=== PATIENT | female | born 1960 | race Caucasian/White ===

== ENCOUNTER → 2017-05-12 | Outpatient (CLI) | payer BC, MEDICARE | END | disposition home or self-care (01) | LOC: CFH 14:07 | PROVIDERS: ATTEND Obstetrics & Gynecology | DX: Z12.31 Encounter for screening mammogram for malignant neoplasm of breast (principal) | CPT/HCPCS: G0202 ==

== ENCOUNTER → 2018-05-30 | Outpatient (CLI) | payer BC, MEDICARE | END | disposition home or self-care (01) | LOC: CFH 14:50 | PROVIDERS: ATTEND Obstetrics & Gynecology | DX: Z12.31 Encounter for screening mammogram for malignant neoplasm of breast (principal); Z80.3 Family history of malignant neoplasm of breast | CPT/HCPCS: 77067 ==

== ENCOUNTER → 2018-12-29 | Outpatient (CLI) | payer BC, MEDICARE | END | disposition home or self-care (01) | LOC: CFH 14:30 | PROVIDERS: ATTEND Family Medicine | DX: M47.812 Spondylosis without myelopathy or radiculopathy, cervical region (principal); M48.02 Spinal stenosis, cervical region; M25.78 Osteophyte, vertebrae | CPT/HCPCS: 72141 ==

== ENCOUNTER 2019-07-20 05:18 | Inpatient (IN) | payer BC, MEDICARE ==
[~2019-07-20] VITALS: Ht 152.4 cm; Wt 70.2 kg
[2019-07-20] MEDS ORDERED: LACTATED RINGERS 1,000 ML IV SCH (06:05)
[2019-07-20] MEDS ORDERED: FEXO180T72 PO (06:07)
[2019-07-20] MEDS ORDERED: THROMBIN 5,000 UNIT VIAL TP ONE (06:22)
[2019-07-20] MEDS ORDERED: EPINEPHRINE 1 MG/ML, 1ML ONE (06:22)
[2019-07-20] MEDS ORDERED: BUPIVACAINE/PF 0.5% ONE (06:22)
[2019-07-20] MEDS ORDERED: BACITRACIN 50,000 UNIT ONE (06:22)
[2019-07-20] MEDS ORDERED: FENTANYL PF 250 MCG/5ML ONE (06:29)
[2019-07-20] MEDS ORDERED: PROPOFOL 100 ML ONE (06:29)
[2019-07-20] MEDS ORDERED: MIDAZOLAM 1 MG/ML, 2ML ONE (06:29)
[2019-07-20 06:30] VITALS: BP 166/95
[2019-07-20] MEDS ORDERED: ACETAMINOPHEN 500 MG TABLET PO ONE (07:00)
[2019-07-20] MEDS ORDERED: FAMOTIDINE 20 MG TABLET PO ONE (07:00)
[2019-07-20] MEDS ORDERED: OxyconTIN ER 10 MG TAB.ER PO ONE (07:00)
[2019-07-20] MEDS ORDERED: GABAPENTIN 300 MG CAPSULE PO ONE (07:00)
[2019-07-20] MEDS ORDERED: IPRATROPIUM BROMIDE (07:09)
[2019-07-20] MEDS ORDERED: ALPR0.25 PO (07:09)
[2019-07-20] MEDS ORDERED: ALBU90AE INH (07:09)
[2019-07-20] MEDS ORDERED: LOSA50TA14 PO (07:09)
[2019-07-20] MEDS ORDERED: NYSTATIN (07:09)
[2019-07-20] MEDS ORDERED: HYDR25TA6 PO (07:09)
[2019-07-20] MEDS ORDERED: PRAV10TA2 PO (07:09)
[2019-07-20] MEDS ORDERED: HYOS0.1260 PO (07:09)
[2019-07-20] MEDS ORDERED: DEXAMETHASONE 4 MG/ML, 1ML ONE ×3 (07:14)
[2019-07-20] MEDS ORDERED: CEFAZOLIN 1,000 MG ONE ×2 (07:15)
[2019-07-20] MEDS ORDERED: DIAZEPAM 5 MG/ML, 2ML IVPush PRN (08:30)
[2019-07-20] MEDS ORDERED: HYDROmorphone 2 MG/ML, 1ML IVPush PRN ×2 (08:30→11:00)
[2019-07-20] MEDS ORDERED: OXYcodone 5 MG/5 ML ORAL.SOL UDC PO PRN (08:30)
[2019-07-20] MEDS ORDERED: MEPERIDINE/PF 25MG/ML,1ML IVPush PRN (08:30)
[2019-07-20] MEDS ORDERED: ONDANSETRON 2MG/ML, 2ML IV PRN (08:30)
[2019-07-20] MEDS ORDERED: LABETALOL 5MG/ML, 20ML IV PRN ×2 (08:30→11:00)
[2019-07-20] MEDS ORDERED: PROMETHAZINE 25 MG/ML, 1ML IV PRN (08:30)
[2019-07-20] MEDS ORDERED: hydrALAzine 20 MG/ML, 1ML IV PRN (08:30)
[2019-07-20] MEDS ORDERED: SUCCINYLCHOLINE 20 MG/ML, 10ML ONE (08:37)
[2019-07-20] MEDS ORDERED: PROPOFOL 10 MG/ML, 20ML ONE (08:37)
[2019-07-20] MEDS ORDERED: ONDANSETRON 2MG/ML, 2ML ONE (08:41)
[2019-07-20] MEDS ORDERED: FENTANYL PF 100 MCG/2ML ONE ×2 (09:19→09:42)
[2019-07-20] MEDS: FENTANYL PF 100 MCG/2ML IV PRN ×3 (09:20→09:47)
[2019-07-20] MEDS ORDERED: ALBUTEROL/IPRATROPIUM 2.5MG/0.5MG, 3 ML NPPB PRN (09:30)
[2019-07-20] MEDS ORDERED: METHOCARBAMOL 1,000 MG in DEXTROSE 5% 100 ML IV ONE ×2 (09:30→11:00)
[2019-07-20] MEDS ORDERED: ALBUTEROL SULFATE 2.5 MG/3 ML ONE (09:39)
[2019-07-20] MEDS ORDERED: RACEPINEPHRINE INH 2.25%, 0.5ML NPPB PRN (10:30)
[2019-07-20] MEDS ORDERED: ALBUTEROL SULFATE 2.5 MG/3 ML NPPB PRN (10:30)
[2019-07-20] MEDS: PROMETHAZINE 25 MG/ML, 1ML IM PRN ×2 (10:59→20:05)
[2019-07-20] MEDS ORDERED: HYOSCYAMINE 0.125 MG TABLET PO PRN (11:00)
[2019-07-20] MEDS ORDERED: HYDROcodone/APAP 5/325 TABLET PO PRN (11:00)
[2019-07-20] MEDS ORDERED: ALBUTEROL/IPRATROPIUM 2.5MG/0.5MG, 3 ML HHN PRN (11:00)
[2019-07-20] MEDS ORDERED: METHOCARBAMOL 750 MG TABLET PO PRN ×2 (11:00)
[2019-07-20] MEDS ORDERED: BISACODYL 10 MG SUPP PR PRN (11:00)
[2019-07-20] MEDS ORDERED: MAGNESIUM HYDROXIDE 8%, 30ML UDC PO PRN (11:00)
[2019-07-20] MEDS ORDERED: DIPHENHYDRAMINE 50 MG/ML, 1ML IVPush PRN (11:00)
[2019-07-20] MEDS: DEXAMETHASONE 4 MG/ML, 1ML IV SCH ×3 (11:22→23:04)
[2019-07-20] MEDS: D5%-0.9% NACL+KCL 20MEQ 1,000 ML IV SCH ×2 (12:26→23:04)
[2019-07-20 13:42] VITALS: BP 120/72
[2019-07-20] MEDS: CEFAZOLIN PMX 1GM/50ML 50 ML IVPB SCH ×2 (14:30→23:04)
[2019-07-20] MEDS: HYDROcodone/APAP 10/325 MG TABLET PO PRN ×2 (14:36→23:04)
[2019-07-20] MEDS: ONDANSETRON 2MG/ML, 2ML IV PRN (17:00)
[2019-07-20 19:41] VITALS: BP 114/72
[2019-07-20] MEDS: PRAVASTATIN 20 MG TABLET PO SCH (19:59)
[2019-07-20] MEDS ORDERED: ZOLPIDEM 5MG TABLET PO PRN (21:00)
[2019-07-21 01:00] VITALS: BP 102/67
[2019-07-21] MEDS: DEXAMETHASONE 4 MG/ML, 1ML IV SCH ×3 (05:06→17:38)
[2019-07-21] MEDS: ONDANSETRON 2MG/ML, 2ML IV PRN ×3 (05:06→20:38)
[2019-07-21] MEDS: HYDROcodone/APAP 10/325 MG TABLET PO PRN ×4 (05:07→20:41)
[2019-07-21 05:26] LABS: MEAN CORPUSCULAR HEMOGLOBIN 32.3 pg (27.0-34.8); MEAN CORPUSCULAR HGB CONC 33.2 g/dL (32.4-35.8); MEAN CORPUSCULAR VOLUME 97.2 fL (80-100); MEAN PLATELET VOLUME 8.5 fL (7.4-10.4); PLATELET COUNT 279 x10^3/uL (130-400); RED BLOOD COUNT 4.12 x10^6/uL (3.82-5.3)
[2019-07-21 05:32] LABS: ANION GAP 6 mmol/L (5-15); CHLORIDE 107 mmol/L (98-107); CREATININE 0.82 mg/dL (0.55-1.02)
[2019-07-21 06:00] LABS: BASOPHILS # (AUTO) 0.01 x10^3/uL (0-0.1); BASOPHILS % (AUTO) 0 % (0-1); EOSINOPHILS # (AUTO) 0.07 x10^3/uL (0-0.4); EOSINOPHILS % (AUTO) 1 % (1-7); LYMPHOCYTES # (AUTO) 0.49 x10^3/uL (1-3.4); LYMPHOCYTES % (AUTO) 4 % (22-44); MD SCAN; MONOCYTES # (AUTO) 0.11 x10^3/uL (0.2-0.8); MONOCYTES % (AUTO) 1 % (2-9); NEUTROPHILS # (AUTO) 12.37 x10^3/uL (1.8-6.8); NEUTROPHILS % (AUTO) 95 % (42-75)
[2019-07-21 06:48] VITALS: BP 105/67
[2019-07-21] MEDS: SENNA/DOCUSATE TABLET PO SCH (09:11)
[2019-07-21] MEDS: CETIRIZINE 10 MG TABLET PO SCH (09:11)
[2019-07-21] MEDS: LOSARTAN 50MG TABLET PO SCH (09:12)
[2019-07-21] MEDS: HYDROCHLOROTHIAZIDE 12.5 MG CAPSULE PO SCH (09:12)
[2019-07-21] MEDS: D5%-0.9% NACL+KCL 20MEQ 1,000 ML IV SCH ×2 (09:12→17:29)
[2019-07-21] MEDS: DIPHENHYDRAMINE 50 MG/ML, 1ML IVPush PRN ×2 (09:20→22:40)
[2019-07-21 14:13] VITALS: BP 115/74
[2019-07-21 19:00] VITALS: BP 115/69
[2019-07-21] MEDS: PRAVASTATIN 20 MG TABLET PO SCH (20:40)
[2019-07-22 00:49] VITALS: BP 121/74
[2019-07-22] MEDS: DEXAMETHASONE 4 MG/ML, 1ML IV SCH ×2 (01:01→06:16)
[2019-07-22] MEDS: D5%-0.9% NACL+KCL 20MEQ 1,000 ML IV SCH (05:00)
[2019-07-22 05:10] LABS: MEAN CORPUSCULAR HEMOGLOBIN 32.3 pg (27.0-34.8); MEAN CORPUSCULAR HGB CONC 33.1 g/dL (32.4-35.8); MEAN CORPUSCULAR VOLUME 97.4 fL (80-100); PLATELET COUNT 300 x10^3/uL (130-400)
[2019-07-22 06:49] LABS: BASOPHILS # (AUTO) 0.02 x10^3/uL (0-0.1); BASOPHILS % (AUTO) 0 % (0-1); EOSINOPHILS % (AUTO) 0 % (1-7); LYMPHOCYTES # (AUTO) 0.54 x10^3/uL (1-3.4); LYMPHOCYTES % (AUTO) 4 % (22-44); MD SCAN; MONOCYTES # (AUTO) 0.28 x10^3/uL (0.2-0.8); MONOCYTES % (AUTO) 2 % (2-9); NEUTROPHILS # (AUTO) 14.81 x10^3/uL (1.8-6.8); NEUTROPHILS % (AUTO) 95 % (42-75)
[2019-07-22] MEDS ORDERED: CYCLOBENZAPRINE 10 MG TABLET PO PRN (07:30)
[2019-07-22 07:52] VITALS: BP 134/81
[2019-07-22] MEDS ORDERED: MAALOX/HYOSCYAMINE/LIDOCAINE 45 ML BTL PO PRN (08:00)
[2019-07-22] MEDS ORDERED: HYDR2TAB29 PO ×2 (08:06→08:39)
[2019-07-22] MEDS ORDERED: CYCL5TAB PO ×2 (08:08→08:39)
[2019-07-22] MEDS ORDERED: DOXY100T9 PO (08:10)
[2019-07-22] MEDS ORDERED: ONDA4TAB7 PO ×2 (08:16→08:40)
[2019-07-22] MEDS ORDERED: DOXY100C2 PO (08:39)
[2019-07-22] MEDS: CETIRIZINE 10 MG TABLET PO SCH ×2 (08:56→09:02)
[2019-07-22] MEDS: SENNA/DOCUSATE TABLET PO SCH (08:57)
[2019-07-22] MEDS: HYDROCHLOROTHIAZIDE 12.5 MG CAPSULE PO SCH (08:58)
[2019-07-22] MEDS: HYDROmorphone 2MG TABLET PO PRN ×2 (08:59→13:02)
[2019-07-22] MEDS: LOSARTAN 50MG TABLET PO SCH (09:01)
[2019-07-22] MEDS ORDERED: FLU VACC QS2019-20 36MOS UP/PF 0.5 ML IM-VACC ONE (12:30)
[2019-07-22 13:00] VITALS: BP 131/81
[2019-07-22] MEDS: ONDANSETRON 2MG/ML, 2ML IV PRN (13:03)
== END 2019-07-22 13:27 | disposition home or self-care (01) | DRG 472 ==
LOC: ORIP 05:18 → 4NE 10:20
PROVIDERS: ADMIT Neurological Surgery; ATTEND Neurological Surgery
PROC: 0RB30ZZ Excision of Cervical Vertebral Disc, Open Approach (ICD-10-PCS; 2019-07-20)
PROC: 01N10ZZ Release Cervical Nerve, Open Approach (ICD-10-PCS; 2019-07-20)
PROC: 00NW0ZZ Release Cervical Spinal Cord, Open Approach (ICD-10-PCS; 2019-07-20)
PROC: 4A11X4G Monitoring of Peripheral Nervous Electrical Activity, Intraoperative, External Approach (ICD-10-PCS; 2019-07-20)
PROC: 0RG20A0 Fusion of 2 or more Cervical Vertebral Joints with Interbody Fusion Device, Anterior Approach, Anterior Column, Open Approach (ICD-10-PCS; principal; 2019-07-20 07:00)
DX: M48.02 Spinal stenosis, cervical region (principal); M47.12 Other spondylosis with myelopathy, cervical region; Z91.048 Other nonmedicinal substance allergy status; M40.50 Lordosis, unspecified, site unspecified; Z88.6 Allergy status to analgesic agent; K22.4 Dyskinesia of esophagus; Z88.8 Allergy status to other drugs, medicaments and biological substances; Z91.040 Latex allergy status; F32.9 Major depressive disorder, single episode, unspecified; F41.9 Anxiety disorder, unspecified; G43.909 Migraine, unspecified, not intractable, without status migrainosus; M19.90 Unspecified osteoarthritis, unspecified site; Z87.891 Personal history of nicotine dependence; Z82.49 Family history of ischemic heart disease and other diseases of the circulatory system; Z81.8 Family history of other mental and behavioral disorders; Z82.61 Family history of arthritis
CPT/HCPCS: 36415; 72040; J7613; S0020; 80048; 85025; 90686; 94640; C1713; G0378; J0171; J0690; J1100; J1170; J2250; J2405; J2550; J2704; J3010; C1762; J0330; J1200; J2800; J3480; J7120